=== PATIENT | male | born 1985 | race Caucasian/White ===

== ENCOUNTER 2021-11-19 16:57 | Emergency (ER) | payer BC ==
[2021-11-19 17:02] VITALS: BP 121/75; PULSE 62; TEMP 98.4; BMI 33.6
[2021-11-19] MEDS ORDERED: IBUPROFEN 600 MG TABLET (FP) PO ONE ×2 (20:07→20:11)
== END 2021-11-19 20:37 | disposition home or self-care (01) ==
LOC: JER 16:57 → JERFT 16:57
DX: M76.42 Tibial collateral bursitis [Pellegrini-Stieda], left leg (principal)
CPT/HCPCS: 73130-TC-LT-FY; 99283-25